=== PATIENT | male | born 2000 | race Native Hawaiian/Other Pacific Islander ===

== ENCOUNTER → 2025-03-21 08:02 | Outpatient (CLI) | payer OTHER, SELFPAY ==
--- NOTE | 2025-03-21 08:05 | DI.ECHO.S_ITS ---
[place] [facility] : : [address] : : [place] : : [id number] : : Phone: [phone] Echocardiogram Report + + :Name: EMMA DILLARD Study Date: 03/21/2025 Height: 70 in : :[facility] ReadingLocation: Weight: 195 lb : : Gender: Male BSA: 2.1 m2 : :: 2000 Age: 24 yrs BP: 130/75 mmHg: :Reason For Study: TACHYCARDIA : :Ordering Physician: RUBIO, : :SAJAN Performed By: Zainab Loaiza : :Referring: SAJAN BERGERON : + + Interpretation Summary The ejection fraction is estimated to be 55-60%. There is trace aortic regurgitation. There is trace tricuspid regurgitation. Procedure: A two-dimensional transthoracic echocardiogram with color flow and Doppler was performed. The study quality was technically adequate. There is no prior echocardiogram noted for this patient. The patient was in sinus rhythm with heart rates between 57-70 bpm during the exam. Left Ventricle: The left ventricle is normal in size and wall thickness. The ejection fraction is estimated to be 55-60%. Left ventricular wall motion is normal. Right Ventricle: The right ventricle is normal in size and function. Atria: The left atrial size is normal. Right atrial size is normal. There is no Doppler evidence for an interatrial shunt. Mitral Valve: The mitral valve leaflets appear normal. There is no evidence of stenosis, fluttering, or prolapse. There is no mitral regurgitation noted. Aortic Valve: The aortic valve is trileaflet. The aortic valve opens well. There is no aortic valve stenosis. There is trace aortic regurgitation. Tricuspid Valve: The tricuspid valve leaflets are thin and pliable. There is trace tricuspid regurgitation. Pulmonic Valve: The pulmonic valve leaflets are thin and pliable; valve motion is normal. There is mild pulmonic regurgitation. Great Vessels: The aortic root is normal size. The dimensions of the ascending aorta are normal. The IVC is of normal diameter and collapses greater than 50% with a sniff. This suggests a low right atrial pressure of 3 mm Hg. Pericardium/ Pleura There is no pericardial effusion. There is no pleural effusion. MMode/2D Measurements & Calculations LVIDd: 5.4 cm LVOT diam: 2.1 cm LVIDs: 3.8 cm Ao root diam: 3.1 cm FS: 28.8 % asc Aorta Diam: 2.6 cm IVSd: 0.75 cm Ao Arch Diam (Prox Trans): 2.5 cm LVPWd: 0.88 cm LV nicholson. diameter/BSA (cm/m^2): 2.6 LV sys. diameter/BSA (cm/m^2): 1.9 LA A2 area: 16.1 cm2 RA long axis: 4.5 cm LA A4 area: 20.0 cm2 RA area: 14.4 cm2 LA length (vol): 5.0 cm RA vol: 39.1 ml LA vol: 54.7 ml RA : 18.9 ml/m2 LA vol index: 26.5 ml/m2 IVC diam: 1.3 cm RVD1 (basal): 3.8 cm RVD2 (mid): 3.2 cm TAPSE: 2.0 cm Doppler Measurements & Calculations Ao V2 max: 122.0 cm/sec LVOT Max Todd: 96.5 cm/sec Ao V2 mean: 81.7 cm/sec LV V1 max P.7 mmHg Ao max P.0 mmHg LV V1 VTI: 20.5 cm Ao mean P.0 mmHg SANDER(I,D): 2.6 cm2 Ao V2 VTI: 26.7 cm SANDER(V,D): 2.7 cm2 sev ratio: 0.77 SANDER indexed to BSA (cm^2/m^2): 1.3 MV E max todd: 86.0 cm/sec PA V2 max: 106.7 cm/sec MV A max todd: 34.2 cm/sec PA V2 mean: 77.6 cm/sec MV E/A: 2.5 PA mean P.7 mmHg Med Peak E' Todd: 12.9 cm/sec PA pr(Accel): 26.8 mmHg E/E' med: 6.7 Lat Peak E' Todd: 15.9 cm/sec E/E' lat: 5.4 E/e' average: 6.0 MV dec time: 0.19 sec SV(LVOT): 69.9 ml Reading Physician:05:38 PM
--- NOTE | 2025-03-21 09:08 | EKG_ITS ---
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
== END ==
PROVIDERS: Referring Provider Chiropractor; Visit Provider Chiropractor
DX: R00.0 Tachycardia, unspecified (principal); I35.1 Nonrheumatic aortic (valve) insufficiency; I07.1 Rheumatic tricuspid insufficiency
CPT/HCPCS: 93005; 93306